=== PATIENT | female | born 1990 | race Caucasian/White ===

== ENCOUNTER 2017-04-03 07:00 | Day surgery (SDC) | payer OTHER, SELFPAY ==
[~2017-04-03] VITALS: Ht 157.5 cm; Wt 49.9 kg
[~2017-04-03 07:00] MED LIST: LEVOTHYROXINE75 MCG PO
--- NOTE | 2017-04-03 07:44 | NUR ---
LE 0700: PT AMBULATES TO DS UNIT, ACCOMPANIED BY SIGNIFICANT OTHER TO ROOM 3. PT PROVIDED WARM BLANKET, WITH CALL LIGHT WITHIN REACH. NO FURTHER REQUESTS AT THIS TIME. PT UP TO BR WITH RN WITH NO FURTHER COMPLAINTS AT THIS TIME.
--- NOTE | 2017-04-03 10:27 | NUR ---
04/03/17 1027 Maribel Jang 1018 RESP EVEN AND UNLABORED. PT DROWSY, REORIENTED TO PACU. VITAL SIGNS STABLE.
--- NOTE | 2017-04-04 15:54 | OR ---
[facility] [address] [place] [id number] Signed DATE OF OPERATION: 04/03/2017 SURGEON: Michael Salcedo MD PREOPERATIVE DIAGNOSIS: JAY-3. POSTOPERATIVE DIAGNOSIS: JAY-3. PROCEDURE: Loop electrical excision procedure (LEEP). ANESTHESIA: MAC. ESTIMATED BLOOD LOSS: 10 mL. SPECIMEN: Anterior cervix, posterior cervix, endocervix and ECC. DRAINS: None. FINDINGS: Large cervix with the squamocolumnar junction well outside the os. There was a small area of moderately acetowhite lesion from 11 o'clock to 1 o'clock position, mostly at the 12 o'clock position. No other lesions were seen. DRAINS: None. COMPLICATIONS: None. DESCRIPTION OF PROCEDURE: The patient was brought to the operating room and placed in the supine position. After adequate IV sedation was obtained, the patient was placed in the dorsal lithotomy position, prepped and draped in usual sterile fashion. The coated speculum with suction Electronically Signed By: MICHAEL SALCEDO MD 04/04/17 1554 PATIENT NAME: MENDEZ WYNNE OPERATIVE REPORT DATE OF : 86 PHYSICIAN: MICHAEL SALCEDO MD REPORT #: [id number] REPORT IS CONFIDENTIAL AND NOT TO BE RELEASED WITHOUT AUTHORIZATION [address] [address] Signed tip was carefully inserted into the vagina and opened to show the entire cervix. The cervix was painted with acetic acid which showed moderate acetowhite lesion from 11 to 1 o'clock. Lugol solution was then carefully painted all around the cervix. The same area was nonstaining and no other nonstaining areas were seen. The cervix was then injected with 10 mL of 1% lidocaine with epinephrine in a circumferential pattern into the cervical tissue. A 10 x 20 mm loop was then used in blended current and the loop used to remove the anterior cervix incorporating the entire upper part of the squamocolumnar junction. A second pass with the same loop posteriorly removed the rest of the squamocolumnar junction. A 10 x 10 mm loop was then used to remove the endocervix and down the canal and the remaining endocervical tissue was then scraped with a curette and passed off as the endocervical curettings. The cervix was observed no other acetowhite or nonstaining areas remained. A ball electrode was then used under coagulation and the entire surface carefully cauterized along the edges and in the middle to stop any bleeding. Good hemostasis was obtained and then the entire biopsy site was painted with Monsel's solution. The cervix was observed and noted to have good hemostasis. The speculum was then removed. The patient tolerated the procedure well and went to the recovery room in good condition. The sponge, needle, and instrument counts were correct at the end of procedure. The four specimens were sent to Pathology for identification. MD ISABELA Valentin/MARTA /[id number] cc: TANYA Luicano Electronically Signed By: MICHAEL SALCEDO MD 04/04/17 1554 PATIENT NAME: YUDYCHARLIEMENDEZ MUSTAFA OPERATIVE REPORT DATE OF : 86 PHYSICIAN: MICHAEL SALCEDO MD REPORT #: [id number] REPORT IS CONFIDENTIAL AND NOT TO BE RELEASED WITHOUT AUTHORIZATION
== END 2017-04-03 11:06 | disposition home or self-care (01) ==
LOC: OPS 07:00 → DS 08:30 → OPS 11:06
PROVIDERS: General Practice
PROC: 0UBC7ZX Excision of Cervix, Via Natural or Artificial Opening, Diagnostic (ICD-10-PCS; principal; 2017-04-03 08:30)
DX: D06.7 Carcinoma in situ of other parts of cervix (principal); N72 Inflammatory disease of cervix uteri; E03.9 Hypothyroidism, unspecified; Z88.5 Allergy status to narcotic agent; Z98.890 Other specified postprocedural states; Z79.899 Other long term (current) drug therapy
CPT/HCPCS: 00940; J1885; J2250; J2405; J2704; J7120